=== PATIENT | female | born 2000 | race Hispanic/Latino ===

== ENCOUNTER 2021-11-27 05:31 | Inpatient (IN) | payer OTHER ==
[2021-11-27] MEDS ORDERED: Promethazine HCl 25 MG/ML VIAL IM PRN ×3 (05:34→11:11)
[2021-11-27] MEDS ORDERED: Bicitra 30 ML UDCUP PO PRN (05:34)
[2021-11-27] MEDS ORDERED: Lactated Ringer's 1,000 ML IV SCH (05:34)
[2021-11-27] MEDS ORDERED: Ondansetron PF 4 MG/2 ML Vial IVP PRN ×3 (05:34→11:11)
[2021-11-27] MEDS ORDERED: Famotidine/PF 20 mg/2ml Vial SLOW IVP PRN (05:34)
[2021-11-27] MEDS ORDERED: ceFAZolin 2 GM/Dextrose 50 ML 2 GM in Premix Bag 1 BAG IVPB SCH (05:34)
[2021-11-27] MEDS ORDERED: hydrALAZINE 20 MG/ML VIAL SLOW IVP PRN ×2 (05:34→11:11)
[2021-11-27 06:07] VITALS: BMI 30.4
[2021-11-27 06:42] LABS: Hemoglobin 9.9 g/dL (12.0-15.5); Mean Corpuscular HGB CONC 32.8 g/dL (32.0-36.0); Mean Corpuscular Hemoglobin 27.9 pg (27.0-33.0); Mean Corpuscular Volume 85.1 fl (81.6-98.3); Mean Platelet Volume 9.9 fl (7.4-10.4); Platelet Count 281 10x3/uL (150-450); Red Blood Cell (RBC) Count 3.55 10x6/uL (3.90-5.03); White Blood Cell (WBC) Count 8.4 10x3/uL (3.5-10.5)
[2021-11-27] MEDS ORDERED: Naloxone HCl 0.4 mg/ml Vial IVP PRN ×2 (07:03)
[2021-11-27] MEDS ORDERED: HYDROmorphone 2 MG/ML VIAL SLOW IVP PRN (07:03)
[2021-11-27] MEDS ORDERED: Promethazine HCl 25 MG SUPP PR PRN (07:03)
[2021-11-27] MEDS ORDERED: Meperidine HCl/PF 25 MG/ML VIAL SLOW IVP PRN (07:03)
[2021-11-27] MEDS ORDERED: Ketorolac Tromethamine 30 MG/ML VIAL IVP PRN (07:03)
[2021-11-27] MEDS ORDERED: Naloxone HCl 0.4 mg/ml Vial IV PRN (07:03)
[2021-11-27] MEDS ORDERED: Fentanyl 100 MCG/2 ML VIAL SLOW IVP PRN (07:03)
[2021-11-27] MEDS ORDERED: diphenhydrAMINE 50 MG/ML VIAL IVP PRN (07:03)
[2021-11-27] MEDS ORDERED: Moisturizing Cream (Eucerin) 113 GM JAR TOP PRN (07:03)
[2021-11-27] MEDS ORDERED: Ondansetron HCl/PF 4 MG/2 ML Vial IVP PRN (07:03)
[2021-11-27] MEDS ORDERED: Morphine PF 10 MG/10 ML VIAL ONE (07:09)
[2021-11-27] MEDS ORDERED: Fentanyl 100 MCG/2 ML VIAL ONE (07:10)
[2021-11-27] MEDS ORDERED: Ondansetron PF 4 MG/2 ML Vial ONE (07:10)
[2021-11-27] MEDS ORDERED: Oxytocin 10 UNITS/ML VIAL ONE ×2 (07:10→08:28)
[2021-11-27] MEDS ORDERED: Phenylephrine 10 MG/ML VIAL ONE (07:10)
[2021-11-27] MEDS ORDERED: Communication Order-Pharmacy FS SCH (07:15)
[2021-11-27] MEDS ORDERED: Ketorolac Tromethamine 30 MG/ML VIAL IVP SCH (07:15)
[2021-11-27 07:16] LABS: Syphilis Antibody Nonreactive (Nonreactive); Syphilis Antibody Index 0.08 S/CO (<1.00 Non-Reactive)
[2021-11-27 07:17] LABS: Hep B Surf Ag Non-Reactive S/CO (NonReactive)
[2021-11-27] MEDS ORDERED: Ketorolac Tromethamine 30 MG/ML VIAL ONE (07:19)
[2021-11-27 07:21] LABS: HBSAg Index 0.15 S/CO (0-0.99)
[2021-11-27] MEDS ORDERED: ceFAZolin 2 GM/Dextrose 50 ML IVPB ONE (07:26)
[2021-11-27] MEDS ORDERED: Methylergonovine 0.2 MG/ML VIAL ONE (08:03)
[2021-11-27] MEDS ORDERED: NS w/ Oxytocin 30 units 500 ML IV SCH (11:11)
[2021-11-27] MEDS ORDERED: Meperidine HCl/PF 25 MG/ML VIAL IM PRN (11:11)
[2021-11-27] MEDS ORDERED: Simethicone Chewable 80 MG TAB PO PRN (11:11)
[2021-11-27] MEDS ORDERED: diphenhydrAMINE 25 MG CAP PO PRN (11:11)
[2021-11-27] MEDS ORDERED: Bisacodyl 10 MG SUPP PR PRN (11:11)
[2021-11-27] MEDS ORDERED: Lanolin Ointment 7 GM TUBE TOP PRN (11:11)
[2021-11-27] MEDS ORDERED: Boostrix 0.5 ML (Tdap) VIAL IM ONE (11:11)
[2021-11-27] MEDS ORDERED: Ferrous Sulfate 325 MG TAB PO SCH (11:30)
[2021-11-27] MEDS ORDERED: Prenatal Vitamin 1 TAB PO SCH (11:30)
[2021-11-27] MEDS ORDERED: Docusate 100 MG CAP PO SCH (11:30)
[2021-11-27] MEDS: Ketorolac Tromethamine 30 MG/ML VIAL IVP SCH ×2 (14:46→21:00)
[2021-11-27] MEDS: Ferrous Sulfate 325 MG TAB PO SCH (21:00)
[2021-11-28] MEDS: Ketorolac Tromethamine 30 MG/ML VIAL IVP SCH ×2 (03:00→08:38)
[2021-11-28 05:20] LABS: Hemoglobin 7.8 g/dL (12.0-15.5); Mean Corpuscular HGB CONC 32.6 g/dL (32.0-36.0); Mean Corpuscular Hemoglobin 28.2 pg (27.0-33.0); Mean Corpuscular Volume 86.3 fl (81.6-98.3); Mean Platelet Volume 9.6 fl (7.4-10.4); Platelet Count 215 10x3/uL (150-450); Red Blood Cell (RBC) Count 2.77 10x6/uL (3.90-5.03); White Blood Cell (WBC) Count 6.4 10x3/uL (3.5-10.5)
[2021-11-28] MEDS: Prenatal Vitamin 1 TAB PO SCH (08:38)
[2021-11-28] MEDS: Docusate 100 MG CAP PO SCH ×2 (08:38→22:15)
[2021-11-28] MEDS: Ferrous Sulfate 325 MG TAB PO SCH ×2 (08:38→22:16)
[2021-11-28] MEDS: HYDROcodone/Acetaminophen 5/325 mg Tablet PO PRN ×3 (08:47→18:15)
[2021-11-28] MEDS: Ibuprofen 800 MG TAB PO SCH ×2 (14:01→22:15)
[2021-11-29] MEDS: HYDROcodone/Acetaminophen 5/325 mg Tablet PO PRN ×5 (00:55→22:03)
[2021-11-29] MEDS: Prenatal Vitamin 1 TAB PO SCH (08:17)
[2021-11-29] MEDS: Ibuprofen 800 MG TAB PO SCH ×3 (08:17→22:03)
[2021-11-29] MEDS: Docusate 100 MG CAP PO SCH ×2 (08:17→22:03)
[2021-11-29] MEDS: Ferrous Sulfate 325 MG TAB PO SCH ×2 (08:17→22:06)
[2021-11-30] MEDS: HYDROcodone/Acetaminophen 5/325 mg Tablet PO PRN ×2 (04:47→09:17)
[2021-11-30] MEDS: Ibuprofen 800 MG TAB PO SCH (06:14)
[2021-11-30] MEDS: Ferrous Sulfate 325 MG TAB PO SCH (07:57)
[2021-11-30 07:58] VITALS: BP 99/54; TEMP 97.7
[2021-11-30] MEDS: Docusate 100 MG CAP PO SCH (07:58)
[2021-11-30] MEDS: Prenatal Vitamin 1 TAB PO SCH (07:58)
== END 2021-11-30 10:40 | disposition home or self-care (01) | DRG 788 ==
LOC: CSHLD 05:31 → CSHPP 10:40
PROVIDERS: ADMIT Family Medicine; ATTEND Family Medicine
PROC: 10D00Z1 Extraction of Products of Conception, Low, Open Approach (ICD-10-PCS; principal; 2021-11-27)
DX: O34.211 Maternal care for low transverse scar from previous cesarean delivery (principal); Z3A.39 39 weeks gestation of pregnancy; Z37.0 Single live birth; Z20.822 Contact with and (suspected) exposure to COVID-19
CPT/HCPCS: 36415; 51702; 85027; 86780; 86850; 86900; 86901; 87340; J1200; J1885; J2274; J2370; J2405; J2550; J2590; J3010; J7120; S0028